=== PATIENT | female | born 1930 | race Caucasian/White ===

== ENCOUNTER 2016-12-03 16:24 | Observation (INO) ==
--- NOTE | 2016-12-03 18:31 | Emergency Department Note ---
Disposition Clinical Impression: Pre-syncope Disposition: Admitted As Inpatient Condition: Fair Time of Disposition: 22:00 Syncope HPI - General Chief Complaint: ED Weakness Stated Complaint: weakness, near syncope Time Seen by Provider: 12/03/16 17:20 Source: patient, family Mode of arrival: private vehicle Limitations: no limitations Nursing Notes Reviewed: Yes Vital Signs Reviewed: Yes - History of Present Illness HPI Narrative: Patient is an 86-year-old female who presents to the ED today for 48 hour history of pre-syncopal episodes on 3 occasions. Episodes are not clearly provoked by any known factor. Patient tells me she simply feels like she is going to black out. No prodromal symptoms. Denies any "room spinning" or vertigo-like sensation. No chest pain or palpitations associated with presyncopal episodes. No general fatigue. No fevers, chills, or sweats. One episode occurred while patient was stepping out of her vehicle, another episode occurred in the shower, and yet another episode occurred while seated. Patient has not had any associated falls or injuries. Not currently having any acute sources of pain. Patient denies any other concurrent symptoms including headache, diaphoresis, palpitations, chest pain, nausea, vomiting, shortness of breath. 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 Prodromal Symptoms: none Witnessed: yes - by bystander Context: at rest, standing up Injuries Sustained Associated with Event: none Current Symptoms: none Associated trauma secondary to event: No - Related Data Home Medications Medication Instructions Recorded Confirmed Apixaban [Eliquis] 5 mg PO BID 12/03/16 12/03/16 Aspirin Enteric Coated [Aspirin EC] 81 mg PO DAILY 12/03/16 12/03/16 Carvedilol [Coreg] 25 mg PO BID 12/03/16 12/03/16 Furosemide [Lasix] 80 mg PO DAILY 12/03/16 12/03/16 HYDROcodone/Acet 5/325 mg [[place] 1 tab PO Q4H PRN 12/03/16 12/03/16 5-325 mg] Losartan Potassium [Cozaar] 100 mg PO DAILY 12/03/16 12/03/16 Potassium Chloride 20 meq PO BID 12/03/16 12/03/16 amLODIPine [Norvasc] 5 mg PO DAILY 12/03/16 12/03/16 Allergies Allergy/AdvReac Type Severity Reaction Status Date / Time No Known Allergies Allergy Verified 12/03/16 16:31 Review of Systems: As Per HPI Constitutional: Denies: fever, chills, weakness Eyes: Denies: vision change ENT ED: Reports: other (no tinnitus) Cardiovascular: Denies: chest pain, palpitations, dyspnea on exertion, edema ( Not in last 48 hours) Respiratory: Denies: cough, dyspnea Gastrointestinal: Denies: abdominal pain, nausea, vomiting, diarrhea Genitourinary: Denies: urgency, dysuria, frequency Musculoskeletal: Denies: back pain, neck pain Neurological: Denies: headache, weakness, numbness, paresthesias, confusion, vertigo Endocrine: Denies: fatigue Past Medical History - Past Medical History Attestation: Yes The following information was validated with the patient. Medical history: Reports: atrial fibrillation, CHF, coronary artery disease, CVA Surgical history: Reports: heart valve replacement (Within last 2 months. Aortic valve replacement - mechanical) - Social History Smoking Status: Never smoker Smokeless Tobacco Status: No Alcohol use: Reports: none Drug use: Reports: none Physical Exam - General Limitations: no limitations General appearance: alert, in no apparent distress - Head Head exam: atraumatic, normal inspection - Eye Eye exam: Present: PERRL, EOMI. Absent: scleral icterus, conjunctival injection , nystagmus - ENT ENT exam: mucous membranes moist - Neck Neck exam: Absent: tenderness - Chest Chest inspection: Present: symmetric chest wall rise - Respiratory Respiratory exam: Present: normal lung sounds bilaterally. Absent: respiratory distress, wheezes - Cardiovascular Cardiovascular exam: Present: regular rate, normal rhythm, systolic murmur. Absent: diastolic murmur, +S3, +S4 - Abdominal Exam Abdominal exam: Present: soft, Non-Tender. Absent: distention, guarding, rebound, rigidity - Extremities Exam Extremities exam: Present: normal inspection, other (pulses 2+). Absent: pedal edema - Expanded Lower Extremity Exam Gait: not tested/not observed - Neurological Exam Neurological exam: Present: alert, oriented X3, CN II-XII intact, reflexes normal, other (Patient does occasionally have inappropriate word substitutions which is a baseline for her since CVAs; otherwise she is at baseline mental status per family members present). Absent: motor sensory deficit - Psychiatric Psychiatric exam: Present: normal affect - Skin Skin exam: Present: warm, dry, intact, normal color. Absent: cyanosis, diaphoresis, pallor Course Course Narrative: Plan to check CBC, electrolytes, chest x-ray, UA, EKG, head CT without contrast , will interrogate pacemaker, and will seek records CVA hospitalization for CVA from [place]. Initial VS unremarkable. Vital Signs Temperature 97.9 F 12/03/16 16:30 Pulse Rate 81 12/03/16 16:30 Respiratory Rate 18 12/03/16 16:30 Blood Pressure 148/77 12/03/16 16:30 O2 Sat by Pulse Oximetry 98 12/03/16 16:30 Temperature 97.9 F 12/03/16 22:09 Pulse Rate 79 12/03/16 22:09 Respiratory Rate 16 12/03/16 22:09 Blood Pressure 168/72 12/03/16 22:09 O2 Sat by Pulse Oximetry 97 12/03/16 22:09 Oxygen Delivery Oxygen Delivery Room Air Syncope - MDM Narrative Medical decision making narrative: Considering patient's history of dysrhythmias and CVA earlier this year, patient would benefit from further monitoring and assessment for cause of episodic presyncope. Dr. Dee spoke with hospitalist, who accepted the patient. Patient is agreeable to admission. - Lab Data Lab results reviewed: Yes I reviewed the patient's lab results. Lab results narrative: Laboratory Last Values WBC 7.9 K/mcL (4.3-11.1) 12/03/16 18:38 RBC 4.40 M/mcL (3.82-4.97) 12/03/16 18:38 Hgb 13.2 g/dL (11.5-15.4) 12/03/16 18:38 Hct 39.2 % (35.3-44.9) 12/03/16 18:38 MCV 89.1 fL (83.0-100.0) 12/03/16 18:38 MCH 30.0 pg (28.0-33.3) 12/03/16 18:38 MCHC 33.7 g/dL (31.6-35.5) 12/03/16 18:38 RDW 11.5 % (11.5-14.5) 12/03/16 18:38 Plt Count 278 K/mcL (140-400) 12/03/16 18:38 MPV 9.8 fL (9.4-12.4) 12/03/16 18:38 Immature Gran % 0.4 % (0-4) 12/03/16 18:38 Seg Neutrophils % 63.0 % 12/03/16 18:38 Lymphocytes % 23.5 % 12/03/16 18:38 Monocytes % 10.4 % 12/03/16 18:38 Eosinophils % 2.2 % 12/03/16 18:38 Basophils % 0.5 % 12/03/16 18:38 Neutrophils # 5.0 K/mcL (1.6-8.9) 12/03/16 18:38 Lymphocytes # 1.9 K/mcL (0.6-4.6) 12/03/16 18:38 Monocytes # 0.8 K/mcL (0.0-1.3) 12/03/16 18:38 Eosinophils # 0.2 K/mcL (0.0-0.6) 12/03/16 18:38 Basophils # 0.0 K/mcL (0.0-0.2) 12/03/16 18:38 Sodium 139 mEq/L (136-145) 12/03/16 18:38 Potassium 3.6 mEq/L (3.5-4.5) 12/03/16 18:38 Chloride 102 mEq/L (98-109) 12/03/16 18:38 Carbon Dioxide 28 mEq/L (19-29) 12/03/16 18:38 BUN 20 mg/dL (7-20) 12/03/16 18:38 Creatinine 1.00 mg/dL (0.57-1.11) 12/03/16 18:38 Est GFR ( Amer) > 60 (> 60) 12/03/16 18:38 Est GFR (Non-Af Amer) 53 (> 60) L 12/03/16 18:38 BUN/Creatinine Ratio 20 (6-26) 12/03/16 18:38 Glucose 102 mg/dL (70-99) H 12/03/16 18:38 Calculated Osmolality 291 (280-300) 12/03/16 18:38 Calcium 9.5 mg/dL (8.6-10.8) 12/03/16 18:38 Troponin I 0.01 ng/mL (0-0.03) 12/03/16 18:38 Urine Color Yellow (Yellow) 12/03/16 20:00 Urine Clarity Cloudy (Clear) A 12/03/16 20:00 Urine pH 7.0 pH Units (5.0-8.0) 12/03/16 20:00 Ur Specific [place] 1.011 (1.010-1.025) 12/03/16 20:00 Urine Protein Negative mg/dL (Neg-Trace) 12/03/16 20:00 Urine Glucose (UA) Normal mg/dL (Normal) 12/03/16 20:00 Urine Ketones Negative mg/dL (Negative) 12/03/16 20:00 Urine Blood Negative (Negative) 12/03/16 20:00 Urine Nitrite Negative (Negative) 12/03/16 20:00 Urine Bilirubin Negative (Negative) 12/03/16 20:00 Urine Urobilinogen Normal mg/dL (Normal) 12/03/16 20:00 Ur Leukocyte Esterase Negative (Negative) 12/03/16 20:00 Urine Microscopic RBC 0-3 per hpf (0-3) 12/03/16 20:00 Urine Microscopic WBC 0-3 per hpf (0-3) 12/03/16 20:00 Ur Squamous Epith Cells Many per lpf (None-Few) H 12/03/16 20:00 Urine Bacteria None Seen per hpf (None-Few) 12/03/16 20:00 Hyaline Casts None Seen per lpf (None-Few) 12/03/16 20:00 Ur Culture Indicated? NO (NO) 12/03/16 20:00 Result diagrams: 12/03/16 18:38 12/03/16 18:38 Lab Results 12/03/16 12/03/16 12/03/16 Range/Units 18:38 18:38 18:38 WBC 7.9 (4.3-11.1) K/mcL RBC 4.40 (3.82-4.97) M/mcL Hgb 13.2 (11.5-15.4) g/dL Hct 39.2 (35.3-44.9) % MCV 89.1 (83.0-100.0) fL MCH 30.0 (28.0-33.3) pg MCHC 33.7 (31.6-35.5) g/dL RDW 11.5 (11.5-14.5) % Plt Count 278 (140-400) K/mcL MPV 9.8 (9.4-12.4) fL Immature Gran % 0.4 (0-4) % Seg Neutrophils % 63.0 % Lymphocytes % 23.5 % Monocytes % 10.4 % Eosinophils % 2.2 % Basophils % 0.5 % Neutrophils # 5.0 (1.6-8.9) K/mcL Lymphocytes # 1.9 (0.6-4.6) K/mcL Monocytes # 0.8 (0.0-1.3) K/mcL Eosinophils # 0.2 (0.0-0.6) K/mcL Basophils # 0.0 (0.0-0.2) K/mcL Sodium 139 (136-145) mEq/L Potassium 3.6 (3.5-4.5) mEq/L Chloride 102 (98-109) mEq/L Carbon Dioxide 28 (19-29) mEq/L BUN 20 (7-20) mg/dL Creatinine 1.00 (0.57-1.11) mg/dL Est GFR ( Amer) > 60 (> 60) Est GFR (Non-Af Amer) 53 L (> 60) BUN/Creatinine Ratio 20 (6-26) Glucose 102 H (70-99) mg/dL Calculated Osmolality 291 (280-300) Calcium 9.5 (8.6-10.8) mg/dL Troponin I 0.01 (0-0.03) ng/mL Urine Color (Yellow) Urine Clarity (Clear) Urine pH (5.0-8.0) pH Units Ur Specific [place] (1.010-1.025) Urine Protein (Neg-Trace) mg/dL Urine Glucose (UA) (Normal) mg/dL Urine Ketones (Negative) mg/dL Urine Blood (Negative) Urine Nitrite (Negative) Urine Bilirubin (Negative) Urine Urobilinogen (Normal) mg/dL Ur Leukocyte Esterase (Negative) Urine Microscopic RBC (0-3) per hpf Urine Microscopic WBC (0-3) per hpf Ur Squamous Epith Cells (None-Few) per lpf Urine Bacteria (None-Few) per hpf Hyaline Casts (None-Few) per lpf Ur Culture Indicated? (NO) 12/03/16 Range/Units 20:00 WBC (4.3-11.1) K/mcL RBC (3.82-4.97) M/mcL Hgb (11.5-15.4) g/dL Hct (35.3-44.9) % MCV (83.0-100.0) fL MCH (28.0-33.3) pg MCHC (31.6-35.5) g/dL RDW (11.5-14.5) % Plt Count (140-400) K/mcL MPV (9.4-12.4) fL Immature Gran % (0-4) % Seg Neutrophils % % Lymphocytes % % Monocytes % % Eosinophils % % Basophils % % Neutrophils # (1.6-8.9) K/mcL Lymphocytes # (0.6-4.6) K/mcL Monocytes # (0.0-1.3) K/mcL Eosinophils # (0.0-0.6) K/mcL Basophils # (0.0-0.2) K/mcL Sodium (136-145) mEq/L Potassium (3.5-4.5) mEq/L Chloride (98-109) mEq/L Carbon Dioxide (19-29) mEq/L BUN (7-20) mg/dL Creatinine (0.57-1.11) mg/dL Est GFR ( Amer) (> 60) Est GFR (Non-Af Amer) (> 60) BUN/Creatinine Ratio (6-26) Glucose (70-99) mg/dL Calculated Osmolality (280-300) Calcium (8.6-10.8) mg/dL Troponin I (0-0.03) ng/mL Urine Color Yellow (Yellow) Urine Clarity Cloudy A (Clear) Urine pH 7.0 (5.0-8.0) pH Units Ur Specific [place] 1.011 (1.010-1.025) Urine Protein Negative (Neg-Trace) mg/dL Urine Glucose (UA) Normal (Normal) mg/dL Urine Ketones Negative (Negative) mg/dL Urine Blood Negative (Negative) Urine Nitrite Negative (Negative) Urine Bilirubin Negative (Negative) Urine Urobilinogen Normal (Normal) mg/dL Ur Leukocyte Esterase Negative (Negative) Urine Microscopic RBC 0-3 (0-3) per hpf Urine Microscopic WBC 0-3 (0-3) per hpf Ur Squamous Epith Cells Many H (None-Few) per lpf Urine Bacteria None Seen (None-Few) per hpf Hyaline Casts None Seen (None-Few) per lpf Ur Culture Indicated? NO (NO) - Radiology Data Radiology results reviewed: Yes I reviewed the patient's radiology results. Chest X-Ray 12/03/16 16:35 IMPRESSION: No acute process in the chest. Mild compression deformity involving the superior endplate of what appears to be L1, age indeterminate. If there is focal point tenderness and concern for acute fracture, MRI may be helpful to evaluate for acuity and potential vertebral augmentation. D/ / Radha Berger MD / Radha Berger MD Interpreting Provider: Radha Berger MD Head CT 12/03/16 18:38 IMPRESSION: No acute intracranial abnormality. D/ / Troy Gonzalez MD / Troy Gonzalez MD Interpreting Provider: Troy Gonzalez MD - EKG Data EKG attestation: Yes I reviewed and interpreted this EKG. Rate: normal [place]/QRS: left axis deviation, LBBB, wide QRS complex P waves: absent QTc: borderline When compared to previous EKG there are: previous EKG unavailable Interpretation: no acute changes (No ST segment changes consistent with positive Sgarbossa criteria.) - Core Measures AMI Core Measures Followed: No Measure Exclusions: not indicated
--- NOTE | 2016-12-03 18:33 | Emergency Department Note ---
START Narrative - START START: I examined this patient and my medical decision-making was reviewed with the M48/M60 TANK DRIVER/PA/Advanced Practice Nurse/Resident Physician. I agree with the documented findings, disposition and treatment plan as described except to the extent set forth below. I did see the patient spoke with her and examined her. Lungs are clear with equal breath sounds. I do not hear a right upper sternal order murmur. Abdomen soft and nontender without evidence of a pulsatile abdominal mass. Test results are pending. 183 I did review the patient's labs, I did visualize the chest x-ray which did not show significant abnormality and I am concerned about the patient's multiple episodes of significant presyncopal symptoms and the patient will be admitted. I did speak with the hospitalist. Watch on the patient monitor for possibility of arrhythmia. 2028 The patient recently had 2 teeth pulled and she is on amoxicillin, the patient does have a history of heart failure and is reluctant to have intravenous fluids at this time so these will be canceled. 2008
[2016-12-03 19:09] LABS: Basophils % 0.5 %; Eosinophils # 0.2 K/mcL (0.0-0.6); Eosinophils % 2.2 %; Hematocrit 39.2 % (35.3-44.9); Hemoglobin 13.2 g/dL (11.5-15.4); Immature Granulocytes % 0.4 % (0-4); Lymphocytes # 1.9 K/mcL (0.6-4.6); Lymphocytes % 23.5 %; Mean Corpuscular HGB Conc 33.7 g/dL (31.6-35.5); Mean Corpuscular Volume 89.1 fL (83.0-100.0); Mean Platelet Volume 9.8 fL (9.4-12.4); Monocytes # 0.8 K/mcL (0.0-1.3); Monocytes % 10.4 %; Platelet Count 278 K/mcL (140-400); Red Cell Distribution Width 11.5 % (11.5-14.5)
[2016-12-03 19:21] LABS: BUN/Creatinine Ratio 20 (6-26); Blood Urea Nitrogen 20 mg/dL (7-20); Calcium 9.5 mg/dL (8.6-10.8); Carbon Dioxide 28 mEq/L (19-29); Chloride 102 mEq/L (98-109); Glucose 102 mg/dL (70-99); Osmolality,Calculated 291 (280-300); Potassium 3.6 mEq/L (3.5-4.5); Sodium 139 mEq/L (136-145); eGFR For African Americans > 60 (> 60); eGFR For Non-African Americans 53 (> 60)
[2016-12-03 20:09] LABS: Bilirubin,Urine Negative (Negative); Blood,Urine Negative (Negative); Clarity,Urine Cloudy (Clear); Color,Urine Yellow (Yellow); Glucose,Urine (UA) Normal (Normal); Ketones,Urine Negative (Negative); Leukocyte Esterase,Urine Negative (Negative); Nitrite,Urine Negative (Negative); Protein,Urine Negative (Neg-Trace); Specific Gravity,Urine 1.011 (1.010-1.025); Urobilinogen,Urine Normal (Normal)
[2016-12-03 20:11] LABS: Bacteria,Urine None Seen per hpf (None-Few); Hyaline Casts,Urine None Seen per lpf (None-Few); RBC,Urine 0-3 per hpf (0-3); Squamous Epithelial Cell,Urine Many per lpf (None-Few); WBC,Urine 0-3 per hpf (0-3)
--- NOTE | 2016-12-04 01:11 | Internal Med History&Physical ---
<Cleveland Avila - Last Filed: 12/04/16 03:17> Date of Encounter: 12/04/16 Time of Encounter: 01:11 Assessment and Plan (1) Near syncope Current visit: Yes Status: Acute CT brain reveals no acute intracranial abnormality. EKG shows A-fib with paced rhythm with LBBB (will obtain old EKG records from [place]) Pacemaker interrogation ordered in ED Patient underwent TAVR on 06/29/16 for severe aortic stenosis Continue gentle hydration 1L IVF ordered at 75cc/hr (patient has h/o diastolic CHF) HGB wnl Orthostatic vital signs pending Echo pending PT/OT consulted Continue to monitor (2) Status post tooth extraction Current visit: Yes Status: Acute Amoxicillin use for endocarditis prophylaxis given recent teeth extraction (3) S/P TAVR (transcatheter aortic valve replacement) Current visit: Yes Status: Chronic S/p mechanical TAVR on 06/29/16 at [place] for severe aortic stenosis (4) CHF (congestive heart failure) Current visit: Yes Status: Chronic Not in acute exacerbation Continue home Coreg and Amlodipine, hold Cozaar and Lasix due to near syncope Qualifiers: Congestive heart failure type: diastolic Congestive heart failure chronicity: chronic Qualified Code(s): I50.32 - Chronic diastolic (congestive ) heart failure (5) HTN (hypertension) Current visit: Yes Status: Chronic Continue home meds Qualifiers: Hypertension type: unspecified Qualified Code(s): I10 - Essential (primary ) hypertension (6) 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 Melara is a 86 year old female with a PMH of diastolic CHF, residual dysarthria s/p CVA, permanent A-fib on Eliquis, AICD, mechanical aortic valve replacement, and current Amoxicillin use after teeth extraction 2 days ago that presented from home c/o weakness and feeling like she was going to pass out on 3 different occasions during the past 2 days. Patient denies h/o syncope, ear problems, vertigo, room spinning sensation, or change in symptoms with position changes. Her only new medicine was Amoxicillin and she reports drinking plenty of water to stay hydrated. Patient denies fever, chills, headache, diaphoresis, CP, palpitations, SOB, N/V/ D/C, dysuria, back pain, limb weakness, or leg edema. She lives at home with her and is independent with all ADLs. 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) Activity Level: Independent ambulation - Family History Mother Adopted: No Living Status: Hx Family Cardiac Disorders: No Hx Family Respiratory Disorders: No Hx Family Cancer: No Hx Family GI Disorders: No Hx Family Genitourinary Disorders: No Hx Family Endocrine Disorder: No Hx Family Musculoskeletal Disorders: No Hx Family Neuromuscular Disorders: No Hx Family Neurologic Disorders: No Hx Family HEENT Disorders: No Hx Family Autoimmune Disorders: No Hx Family Reproductive Disorders: No Hx Family Psychosocial Disorders: No Hx Family Medical Disorders: No Father Living Status: Age at : 65 Cause of : OR Hx Family Cardiac Disorders: Yes Internal Medicine - H&P: Meds Apixaban [Eliquis] 5 mg PO BID 12/03/16 [History] Aspirin Enteric Coated [Aspirin EC] 81 mg PO DAILY 12/03/16 [History] Carvedilol [Coreg] 25 mg PO BID 12/03/16 [History] Furosemide [Lasix] 80 mg PO DAILY 12/03/16 [History] HYDROcodone/Acet 5/325 mg [Jones 5-325 mg] 1 tab PO Q4H PRN 12/03/16 [History] Losartan Potassium [Cozaar] 100 mg PO DAILY 12/03/16 [History] Potassium Chloride 20 meq PO BID 12/03/16 [History] amLODIPine [Norvasc] 5 mg PO DAILY 12/03/16 [History] 3 Allergy/AdvReac Type Severity Reaction Status Date / Time No Known Allergies Allergy Verified 12/03/16 16:31 All Systems PM: A 10-system review of systems was performed and is negative for pertinent findings except as documented above in the HPI. - Constitutional Constitutional: fatigue, weakness, no chills, no falls, no malaise, no weight gain, no weight loss - EENT Eyes: no change in vision Nose, mouth and throat: no bleeding gums, no dental pain, no dysphagia, no facial pain, no mouth pain, no nasal congestion, no sinus pressure - Cardiovascular Cardiovascular ROS IM: lightheadedness, no chest pain, no dyspnea, no palpitations, no syncope (near syncope) - Respiratory Respiratory: no cough, no dyspnea, no chest congestion, no excessive phlegm production - Gastrointestinal Gastrointestinal: no bloating, no constipation, no diarrhea, no melena, no nausea, no vomiting - Genitourinary Genitourinary: no dysuria, no nocturia, no urinary frequency, no urinary urgency - Musculoskeletal Musculoskeletal ROS IM: no back pain, no muscle weakness, no numbness, no tingling - Integumentary Integumentary IM: no erythema, no rash, no unusual bruising - Neurological Neurological ROS: abnormal speech (chronic), dizziness, restless legs, weakness , no behavioral changes, no confusion, no disequilibrium, no focal weakness, no frequent falls, no headache(s), no lack of coordination, no numbness, no vertigo - Psychiatric Psychiatric: no anxiety, no depression - Endocrine Endocrine IM: fatigue, no polydipsia, no polyphagia, no polyuria - Hematologic/Lymphatic Hematologic/Lymphatic: no easy bleeding, no easy bruising - Constitutional Vitals: Temp Pulse Resp BP Pulse Ox 97.9 F 79 16 168/72 97 12/03/16 22:09 12/03/16 22:09 12/03/16 22:09 12/03/16 22:09 12/03/16 22:09 General appearance: Present: cooperative, A&O X 3, pleasant, no acute distress, answers questions appropriately - Head Head exam: Present: atraumatic, normal inspection, normocephalic - Eye Eye exam: Present: EOMI, PERRL - ENT ENT exam: Present: mucous membranes moist, normal oropharynx - Neck Neck exam general surgery: Present: normal inspection, supple. Absent: tenderness, thyromegaly - Respiratory Respiratory exam: Present: CTAB. Absent: accessory muscle use, respiratory distress, rhonchi, wheezes - Cardiovascular Cardiovascular exam: Present: irregular rhythm, +S1, +S2, systolic murmur (3/6 AMY) - GI/Abdominal GI/Abdominal exam: Present: normal bowel sounds, soft. Absent: firm, guarding, rebound, tenderness - Extremities Exam Extremities exam: Present: full ROM, normal capillary refill, normal inspection , warm, radial pulses palpable and symmetrical. Absent: pedal edema, tenderness - Back Exam Back exam: Present: normal inspection. Absent: paraspinal tenderness, tenderness, vertebral tenderness - Neurological Exam Neurological exam: Present: alert, oriented X3, strengths equal and symetr throughout, speech deficit (chronic dysarthria). Absent: facial droop - Psychiatric Psychiatric exam: Present: normal affect, normal mood - Skin Skin exam: Present: dry, normal color, warm. Absent: rash Internal Med - H&P Results - Labs CBC & Chem 7: 12/04/16 01:49 12/04/16 01:49 - EKG Data -: EKG Interpreted by Myself Rate: tachycardia (A-fib at 75bpm, Paced rhythm, wide QRS, LBBB, no ST elevation /depression consisitent with Sgarbossa criteria) - Impressions ITS Impressions Chest X-Ray 12/03/16 16:35 IMPRESSION: No acute process in the chest. Mild compression deformity involving the superior endplate of what appears to be L1, age indeterminate. If there is focal point tenderness and concern for acute fracture, MRI may be helpful to evaluate for acuity and potential vertebral augmentation. D/ / Radha Berger MD / Radha Berger MD Interpreting Provider: Radha Berger MD Head CT 12/03/16 18:38 IMPRESSION: No acute intracranial abnormality. D/ / Troy Gonzalez MD / Troy Gonzalez MD Interpreting Provider: Troy Gonzalez MD <Kvng Fung - Last Filed: 12/04/16 06:17> Date of Encounter: 12/04/16 Time of Encounter: 06:02 - Constitutional Constitutional: fatigue, no fever(s), no night sweats - EENT Eyes: no blurry vision, no change in vision Ears: no ear pain, no tinnitus Nose, mouth and throat: no nasal congestion, no sinus pressure - Cardiovascular Cardiovascular ROS IM: lightheadedness, other (+ near syncope), no chest pain, no dyspnea, no irregular heart rhythm, no palpitations, no syncope - Respiratory Respiratory: no cough, no hemoptysis - Gastrointestinal Gastrointestinal: no diarrhea, no vomiting - Musculoskeletal Musculoskeletal ROS IM: no arthralgias, no back pain - Integumentary Integumentary IM: no rash - Neurological Neurological ROS: dizziness, weakness - Psychiatric Psychiatric: no anxiety, no depression - Constitutional Vitals: Temp Pulse Resp BP Pulse Ox 98.1 F 89 16 120/74 95 12/04/16 02:52 12/04/16 02:52 12/04/16 02:52 12/04/16 02:52 12/04/16 02:52 General appearance: Present: cooperative, A&O X 3, pleasant, no acute distress - Head Head exam: Present: atraumatic, normal inspection - Eye Eye exam: Present: EOMI, PERRL. Absent: scleral icterus - ENT ENT exam: Present: mucous membranes dry, normal exam - Neck Neck exam general surgery: Present: full ROM, normal inspection, supple - Respiratory Respiratory exam: Present: CTAB. Absent: rales - Cardiovascular Cardiovascular exam: Present: +S1, +S2, systolic murmur. Absent: diastolic murmur, JVD - GI/Abdominal GI/Abdominal exam: Present: soft. Absent: tenderness - Extremities Exam Extremities exam: Present: full ROM, warm. Absent: calf tenderness - Back Exam Back exam: Absent: CVA tenderness (L), CVA tenderness (R) - Neurological Exam Neurological exam: Present: alert, oriented X3 - Psychiatric Psychiatric exam: Present: normal affect, normal mood - Skin Skin exam: Present: dry, warm Internal Med - H&P Results - Labs CBC & Chem 7: 12/04/16 01:49 12/04/16 01:49 Labs: Short CBC 12/04/16 Range/Units 01:49 WBC 7.2 (4.3-11.1) K/mcL Hgb 12.9 (11.5-15.4) g/dL Hct 37.7 (35.3-44.9) % Plt Count 267 (140-400) K/mcL BMP 12/04/16 01:49 Sodium 138 Potassium 3.5 Chloride 103 Carbon Dioxide 26 BUN 18 Creatinine 0.76 Glucose 89 Calcium 9.3 Cardiac Enzymes 12/04/16 Range/Units 01:49 Troponin I 0.01 (0-0.03) ng/mL - EKG Data -: EKG Interpreted by Myself Rate: tachycardia (LBBB) - Attending Attestation I discussed the patient NOORVIK, PMH, ROS, lab data, and exam findings wt Dr. Avila. I then saw and examined patient independently as well. Patient feels well now but reiterates the near syncopal spells she's had. She denies chest pain. She denies SOB. She did confirm her bioprosthetic valve she had placed by TAVR. Given her prior history of severe aortic stenosis and new presentation of near syncope, I am concerned about possible aortic valve problems. We will order ECHO, monitor her closely, and continue michael IVF hydration. We will hold her ARB/SHA and diuretics for now for concerns aortic stenosis. These meds can be resumed soon if work-up/ECHO are negative. In addition to ECHO, we'll order bilateral carotid dopplers. to evaluate her carotid vessels. Other than my comments above and noted exam findings, I agree with Dr. Avila's assessment and plan.
[2016-12-04] MEDS ORDERED: Naloxone 0.4 MG/ML INJ IVP PRN (01:21)
[2016-12-04 02:16] LABS: Hematocrit 37.7 % (35.3-44.9); Hemoglobin 12.9 g/dL (11.5-15.4); Mean Corpuscular HGB Conc 34.2 g/dL (31.6-35.5); Mean Corpuscular Hemoglobin 30.5 pg (28.0-33.3); Mean Corpuscular Volume 89.1 fL (83.0-100.0); Mean Platelet Volume 10.2 fL (9.4-12.4); Platelet Count 267 K/mcL (140-400); Red Blood Count 4.23 M/mcL (3.82-4.97); Red Cell Distribution Width 11.6 % (11.5-14.5)
[2016-12-04 02:27] LABS: BUN/Creatinine Ratio 24 (6-26); Blood Urea Nitrogen 18 mg/dL (7-20); Calcium 9.3 mg/dL (8.6-10.8); Carbon Dioxide 26 mEq/L (19-29); Chloride 103 mEq/L (98-109); Glucose 89 mg/dL (70-99); Osmolality,Calculated 287 (280-300); Potassium 3.5 mEq/L (3.5-4.5); Sodium 138 mEq/L (136-145); eGFR For African Americans > 60 (> 60); eGFR For Non-African Americans > 60 (> 60)
[2016-12-04] MEDS ORDERED: 0.9 % Sodium Chloride 1,000 ML IVC SCH (02:30)
[2016-12-04] MEDS: APIXABAN 5 MG TABLET PO SCH ×2 (03:20→20:11)
[2016-12-04] MEDS: *HR* HYDROcodone/Acet 5/325 mg TABLET PO PRN ×3 (03:20→23:26)
[2016-12-04 08:49] LABS: Magnesium 1.8 mg/dL (1.6-2.6)
[2016-12-04] MEDS ORDERED: Furosemide 40 MG TABLET PO SCH (09:00)
[2016-12-04] MEDS: amLODIPine 5 MG TABLET PO SCH (09:21)
[2016-12-04] MEDS: Aspirin Enteric Coated 81 MG Tablet PO SCH (09:24)
[2016-12-04 09:29] LABS: INR 1.4; Prothrombin Time 15.5 Seconds (9.4-12.1)
[2016-12-04 09:36] LABS: Activated Partial Thrombo Time 20.5 Seconds (26.0-36.0)
[2016-12-04] MEDS: Furosemide 40 MG TABLET PO SCH (15:59)
--- NOTE | 2016-12-04 17:44 | Event Note ---
Date of Encounter: 12/04/16 Time of Encounter: 17:43 Chart reviewed; vital signs stable, no acute lab abnormalities. No further syncope recurrent. Continue current plan of care. Bilateral carotid Dopplers pending.
--- NOTE | 2016-12-04 19:06 | Electrocardiograph Report ---
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
[2016-12-04] MEDS: Amoxicillin 500 MG CAPSULE PO SCH (20:11)
[2016-12-05 04:47] LABS: Hematocrit 34.1 % (35.3-44.9); Mean Corpuscular HGB Conc 33.1 g/dL (31.6-35.5); Mean Corpuscular Hemoglobin 29.4 pg (28.0-33.3); Mean Corpuscular Volume 88.8 fL (83.0-100.0); Mean Platelet Volume 9.7 fL (9.4-12.4); Platelet Count 246 K/mcL (140-400); Red Blood Count 3.84 M/mcL (3.82-4.97); Red Cell Distribution Width 11.7 % (11.5-14.5)
[2016-12-05 04:48] LABS: Hemoglobin 11.3 g/dL (11.5-15.4)
[2016-12-05 05:05] LABS: Alanine Aminotransferase 7 Units/L (0-55); Albumin 2.8 g/dL (3.5-5.0); Albumin/Globulin Ratio 0.9 (1.1-2.2); Alkaline Phosphatase 55 Units/L (38-126); Aspartate Amino Transferase 14 Units/L (5-34); BUN/Creatinine Ratio 24 (6-26); Bilirubin,Total 0.4 mg/dL (0.2-1.2); Blood Urea Nitrogen 17 mg/dL (7-20); Calcium 8.7 mg/dL (8.6-10.8); Carbon Dioxide 27 mEq/L (19-29); Chloride 108 mEq/L (98-109); Globulin 3.1 g/dL (2.4-3.5); Glucose 74 mg/dL (70-99); Osmolality,Calculated 292 (280-300); Potassium 3.6 mEq/L (3.5-4.5); Sodium 141 mEq/L (136-145); Total Protein 5.9 g/dL (6.0-8.3); eGFR For African Americans > 60 (> 60); eGFR For Non-African Americans > 60 (> 60)
[2016-12-05] MEDS: Aspirin Enteric Coated 81 MG Tablet PO SCH (08:35)
[2016-12-05] MEDS: APIXABAN 5 MG TABLET PO SCH (08:35)
[2016-12-05] MEDS: Amoxicillin 500 MG CAPSULE PO SCH (08:35)
[2016-12-05] MEDS: amLODIPine 5 MG TABLET PO SCH (08:35)
[2016-12-05] MEDS: Furosemide 40 MG TABLET PO SCH (08:35)
[2016-12-05] MEDS: *HR* HYDROcodone/Acet 5/325 mg TABLET PO PRN (08:36)
--- NOTE | 2016-12-05 10:04 | Carotid Imaging Report ---
Carotid Duplex Patient Name:Jessy Melara Order Number:[id number] Procedure Date:12/04/2016 Date:2Age:86 yrs Gender:Female Lt BP:138 / 77 mmHg Rt.BP:138 / 77 mmHgHeart Rate: Location:[facility] Room #: 21 Renewable Energy Engineer:Jaleesa Bellamy RDCS Referring MD:Ronda Langley CNP foundry engineer:None Reading MD:Chung Galicia MD Primary Indications:Syncope Risk Factors Yes/No Hx of TIA Impressions: The right internal carotid artery has a 40-59% stenosis. The left internal carotid artery has a 60-79% stenosis. Recommendations: Risk factor reduction. Further evaluation recommended if clinically indicated. Follow-up carotid duplex in 1 year. Findings Carotid Duplex: Right: There is nonstenotic plaque in the right proximal common carotid artery. There is irregular heterogeneous plaque. There is nonstenotic plaque in the right mid common carotid artery. There is smooth heterogeneous plaque. There is nonstenotic plaque in the right distal common carotid artery. There is irregular heterogeneous plaque. There is nonstenotic plaque in the right bifurcation. There is highly irregular, heterogeneous calcified plaque. There is 40-59% stenosis in the right proximal internal carotid artery. There is smooth, heterogeneous calcified plaque. The right eca has turbulent flow with plaque. Left: There is nonstenotic plaque in the left proximal common carotid artery. There is irregular heterogeneous plaque. There is nonstenotic plaque in the left mid common carotid artery. There is irregular heterogeneous plaque. There is nonstenotic plaque in the left distal common carotid artery. There is highly irregular heterogeneous plaque. There is nonstenotic plaque in the left bifurcation. There is highly irregular, heterogeneous calcified plaque. There is nonstenotic plaque in the left proximal internal carotid artery. There is smooth heterogeneous plaque. There is 60-79% stenosis in the left mid internal carotid artery. There is irregular plaque. The left eca has turbulent flow with plaque. Prior Study: No prior study available for comparison. Carotid Results Right PSV EDV Assessment Proximal CCA 61 9 Non Stenotic Plaque Mid CCA 66 10 Non Stenotic Plaque Distal CCA 85 9 Non Stenotic Plaque Bifurcation 86 15 Non Stenotic Plaque Proximal ICA 121 20 40-59% stenosis Mid ICA 83 20 Normal Distal ICA 81 23 Normal ECA 138 9 Non Stenotic Plaque Vertebral Artery 18 7 Antegrade Flow Left PSV EDV Assessment Proximal CCA 76 13 Non Stenotic Plaque Mid CCA 58 11 Non Stenotic Plaque Distal CCA 64 11 Non Stenotic Plaque Bifurcation 101 16 Non Stenotic Plaque Proximal ICA 63 15 Non Stenotic Plaque Mid ICA 180 61 60-79% stenosis Distal ICA 72 23 Normal ECA 102 9 Non Stenotic Plaque Vertebral Artery 40 13 Antegrade Flow Ratio's Right ICA/CCA Ratio: 1.83 ICA/CCA Values: 121/66 Left ICA/CCA Ratio: 3.10 ICA/CCA Values: 180/58 Updated by Chung Galicia MD on 12/05/2016 9:56:48 AM electronically signed on 12/05/2016 9:57:04 AM with status of Final
[2016-12-05 11:53] VITALS: BP 114/66
--- NOTE | 2016-12-05 13:13 | Discharge Summary ---
Date of Encounter: 12/05/16 Time of Encounter: 12:47 - Discharge Diagnosis (1) CVA (cerebral vascular accident) Priority: Primary Status: Acute Comments: Jessy Melara is an 86-year-old female with past medical history CVA, A. fib, hypertension and recent aortic valve replacement who presented to [facility] on 2016 with complaints of 2 episodes of near syncope. He was placed in observation status for further workup and treatment. 1. Near Syncope: with 3 episodes of "almost passing out" over 2 days prior to presentation. Head CT non-acute, TTE with EF 55%, indeterminate diastolic dysfunction, aortic valve replacement leaflets not well visualized but appeared well seated in the LVOT. Orthostatic BPs with slight drop but less than 20 mmHg. pacer interrogated in emergency room on arrival, however unable to find report. 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 The left vertebral artery is dominant. Near syncope episodes likely secondary to orthostatic hypotension and intravascular stenosis. Patient and family advised on adequate hydration, change in position slowly and medical management. Continue ASA, Eliquis, add statin. Can follow up with PCP. 2. Aortic valve replacement: s/p TAVR 06/2016 at [facility]. Echo as noted above. Cont ASA, Eliquis. Recommend follow-up with low vision therapist in 1-2 weeks. 3. Permanent atrial fibrillation: per hx. Cont home Eliquis 4. Hypertension: per hx. home Lasix and losartan held on presentation with near syncope. Both resumed at lower doses as suspect orthostasis is contributing to near syncope episodes. Recommend follow-up with PCP in one week for BP recheck 5. History CVA: in 05/2016; s/p Tpa that time. With residual dysarthria. 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 (2) Pre-syncope Priority: Primary Status: Acute (3) S/P TAVR (transcatheter aortic valve replacement) Priority: Primary Status: Chronic (4) Permanent atrial fibrillation Priority: Primary Status: Chronic (5) Status post tooth extraction Priority: Primary Status: Acute - Discharge Medications Prescriptions: Atorvastatin Calcium [Lipitor] 20 mg PO DAILY #30 tablet Furosemide [Lasix] 40 mg PO DAILY #30 tab Losartan Potassium [Cozaar] 50 mg PO DAILY #30 tab Home Medications: Apixaban [Eliquis] 5 mg PO BID 12/03/16 [History] Aspirin Enteric Coated [Aspirin EC] 81 mg PO DAILY 12/03/16 [History] Carvedilol [Coreg] 25 mg PO BID 12/03/16 [History] HYDROcodone/Acet 5/325 mg [Harmon 5-325 mg] 1 tab PO Q4H PRN 12/03/16 [History] Potassium Chloride 20 meq PO BID 12/03/16 [History] amLODIPine [Norvasc] 5 mg PO DAILY 12/03/16 [History] Atorvastatin Calcium [Lipitor] 20 mg PO DAILY #30 tablet 12/05/16 [Rx] Furosemide [Lasix] 40 mg PO DAILY #30 tab 12/05/16 [Rx] Losartan Potassium [Cozaar] 50 mg PO DAILY #30 tab 12/05/16 [Rx] Allergies/Adverse Reactions: 3 Allergy/AdvReac Type Severity Reaction Status Date / Time No Known Allergies Allergy Verified 12/03/16 16:31 Procedures/tests Complete & Pending: Procedures Performed prior 72 hours Category Date Time Status CT angio head [CT] Stat Cat Scan 12/05/16 10:[address] angio neck [CT] Stat Cat Scan 12/05/16 10:30 Taken EV carotid duplex imaging BI Routine Y 12/04/16 15:21 Completed EV echocardiogram Routine Y 12/04/16 03:14 Completed Date of admission: 12/03/16 20:47 Primary care physician: Len Mancia, Consults: 12/04/16 02:29 Consult to Physical Therapy [CONS] Routine Comment: Evaluate, develop and implement POC Reason for Consult: Weakness OT [Consult to Occupational Therapy] [CONS] Routine Comment: Evaluate, develop and implement POC Reason for Consult: Weakness Discharging clinician: Ronda Langley Anticipated date of discharge: 12/05/16 - Patient Status Disposition: Home, Self-Care Condition: Good Functional capacity at discharge: uses cane/walker Overall status at discharge: patient is back to baseline - Discharge Instructions Follow Up With: Len Mancia MD [Primary Care Provider] - - Diet and Activity Activity: increase activity as tolerated Diet: advance to your usual diet Interval History: Seen and examined at bedside, patient is new to me. Information obtained from chart review and patient report. Patient says she feels better and wants to go home. Spoke with son and who reports that one episodes of near syncope occurred after patient was getting out of the shower and the 2 other times under emotional stress. Patient denies lightheadedness, no dizziness, no chest pain, no shortness of breath. Hospital course: See assessment and plan for hospital course - Time Spent with Patient Total time spent providing and/or coordinating discharge services: Less than 30 minutes - Constitutional Vitals: Temp Pulse Resp BP Pulse Ox 98.5 F 74 15 114/66 96 12/05/16 11:52 12/05/16 11:52 12/05/16 11:52 12/05/16 11:52 12/05/16 11:52 General appearance: Present: cooperative, A&O X 3, pleasant, no acute distress - Head Head exam: Present: atraumatic, normocephalic - Eye Eye exam: Present: PERRL, conjuntiva pink, sclera anicteric Pupils: Present: PERRL - Neck Neck exam general surgery: Present: supple, trachea midline. Absent: lymphadenopathy - Respiratory Respiratory exam: Present: CTAB. Absent: accessory muscle use, rales, rhonchi, wheezes - Cardiovascular Cardiovascular exam: Present: RRR, +S1, +S2. Absent: diastolic murmur, gallop, rubs, systolic murmur Additional comments: Positive murmur and valve click - GI/Abdominal GI/Abdominal exam: Present: normal bowel sounds, soft, no peritoneal signs. Absent: distended, tenderness - Extremities Exam Extremities exam: Present: warm, radial pulses palpable and symmetrical. Absent : calf tenderness, cyanotic, pedal edema - Neurological Exam Neurological exam: Present: CN II-XII intact, oriented X3, no focal deficits. Absent: pronater drift, facial droop, speech deficit - Skin Skin exam: Present: dry, intact - VTE Reasons for not Prescribing Prophylaxis: Not indicated-Anticoagulated or INR therapeutic
== END 2016-12-05 14:42 | disposition home or self-care (01) ==
LOC: 3BNU 16:24 → EMEROO 16:24 → 3BNU 21:55
PROVIDERS: ADMIT Family Medicine; ATTEND Registered Nurse